=== PATIENT | female | born 1990 | race African-American/Black ===

== ENCOUNTER 2023-12-04 05:11 | Day surgery (SDC) | payer MEDICARE, OTHER ==
[2023-12-04 05:56] VITALS: BMI 39.6
[2023-12-04] MEDS: diphenhydrAMINE 25 MG CAP PO SCH (06:29)
[2023-12-04] MEDS: Hydrocortisone 1% Cream 30 GM TUBE TOP PRN (06:51)
[2023-12-04] MEDS: Ondansetron ORAL SOLN. 4 MG/5 ML UDCUP PO SCH (07:20)
== END 2023-12-04 11:28 | disposition home or self-care (01) ==
LOC: CSHLD/OP 05:11
PROVIDERS: ATTEND Obstetrics & Gynecology
DX: O23.593 Infection of other part of genital tract in pregnancy, third trimester (principal); N89.8 Other specified noninflammatory disorders of vagina; O99.891 Other specified diseases and conditions complicating pregnancy; R73.03 Prediabetes; O99.343 Other mental disorders complicating pregnancy, third trimester; F31.9 Bipolar disorder, unspecified; F25.9 Schizoaffective disorder, unspecified; O99.213 Obesity complicating pregnancy, third trimester; O35.2XX0 Maternal care for (suspected) hereditary disease in fetus, not applicable or unspecified; D56.0 Alpha thalassemia; B96.89 Other specified bacterial agents as the cause of diseases classified elsewhere; Z79.899 Other long term (current) drug therapy; Z79.82 Long term (current) use of aspirin; Z3A.39 39 weeks gestation of pregnancy
CPT/HCPCS: 87480; 87510; 87660; Q0162; 76815; 81001; 87491; 87591; 99285

== ENCOUNTER 2023-12-06 21:45 | Observation (INO) | payer MEDICARE, OTHER ==
[2023-12-06] MEDS ORDERED: Acetaminophen 500 MG TAB PO SCH (23:45)
== END 2023-12-07 11:03 | disposition home or self-care (01) ==
LOC: CSHLD/OP 21:45 → CSHLD 23:56
PROVIDERS: ADMIT Obstetrics & Gynecology; ATTEND Obstetrics & Gynecology
DX: O99.891 Other specified diseases and conditions complicating pregnancy (principal); R10.9 Unspecified abdominal pain; O99.343 Other mental disorders complicating pregnancy, third trimester; F25.0 Schizoaffective disorder, bipolar type; O24.113 Pre-existing type 2 diabetes mellitus, in pregnancy, third trimester; O99.213 Obesity complicating pregnancy, third trimester; O23.593 Infection of other part of genital tract in pregnancy, third trimester; B96.89 Other specified bacterial agents as the cause of diseases classified elsewhere; D56.0 Alpha thalassemia; Z79.899 Other long term (current) drug therapy; Z98.890 Other specified postprocedural states; Z3A.29 29 weeks gestation of pregnancy

== ENCOUNTER 2023-12-12 02:44 | Day surgery (SDC) | payer MEDICARE, OTHER ==
[2023-12-12 03:29] VITALS: BMI 42.8
[2023-12-12] MEDS: Lactated Ringer's 1,000 ML IV SCH (03:58)
[2023-12-12] MEDS: Acetaminophen 500 MG TAB PO SCH (04:10)
[2023-12-12 04:29] LABS: Bilirubin Neg (Negative); Blood, Urine 10 (Negative); Clarity Clear (Clear); Glucose, Urine (Dipstick) Normal (Negative); Ketone, Urine Negative (Negative); Leukocyte 25 (Negative); Nitrite Negative (Negative); Protein, Urine (Dipstick) 30 mg/dl (Neg-Trace)
[2023-12-12 06:55] LABS: CAUTI Indications for Culture Pregnancy
[2023-12-12 06:56] LABS: Bacteria/HPF Rare-Few HPF (None Seen); Yeast-Budding 1+ HPF (None Seen)
[2023-12-12 07:01] LABS: Urine Culture Reflex Yes Yes
[2023-12-12] MEDS: Fluconazole 100 MG TAB PO SCH (08:56)
[2023-12-12] MEDS: metroNIDAZOLE 500 MG TAB PO SCH (08:57)
== END 2023-12-12 09:26 | disposition home health service (06) ==
LOC: CSHLD/OP 02:44
PROVIDERS: ATTEND Family Medicine
DX: O9A.213 Injury, poisoning and certain other consequences of external causes complicating pregnancy, third trimester (principal); O99.891 Other specified diseases and conditions complicating pregnancy; R73.03 Prediabetes; O47.03 False labor before 37 completed weeks of gestation, third trimester; O00.01 Abdominal pregnancy with intrauterine pregnancy; O99.343 Other mental disorders complicating pregnancy, third trimester; F25.0 Schizoaffective disorder, bipolar type; O99.213 Obesity complicating pregnancy, third trimester; Z79.82 Long term (current) use of aspirin; Z88.8 Allergy status to other drugs, medicaments and biological substances; W18.30XA Fall on same level, unspecified, initial encounter; Z3A.30 30 weeks gestation of pregnancy
CPT/HCPCS: 51701; 81001; 87086; 87480; 87510; 87660; 96360; 99285

== ENCOUNTER 2023-12-15 01:09 | Day surgery (SDC) | payer MEDICARE, OTHER ==
[2023-12-15] MEDS ORDERED: hydrALAZINE 20 MG/ML VIAL SLOW IVP PRN (02:37)
[2023-12-15 03:27] VITALS: BMI 42.8
[2023-12-15 03:32] LABS: Bilirubin Neg (Negative); Blood, Urine Negative (Negative); Clarity Slightly Cloudy (Clear); Glucose, Urine (Dipstick) Normal (Negative); Ketone, Urine 15 mg/dL (Negative); Leukocyte Negative (Negative); Nitrite Negative (Negative); Protein, Urine (Dipstick) Negative (Neg-Trace); Specific Gravity, Urine 1.015 (1.005-1.030); Urobilinogen Normal mg/dL (Less than 2)
[2023-12-15 03:47] LABS: Bacteria/HPF 1+ HPF (None Seen); CAUTI Indications for Culture Dysuria,urgency,freq; Mucous/LPF 1+ LPF (<2+); RBC/HPF 0-3 HPF (0-3); WBC/HPF 0-3 HPF (0-3)
[2023-12-15 03:48] LABS: Urine Culture Reflex No No
[2023-12-15] MEDS: Ondansetron ODT 4 MG TAB SL PRN (03:58)
[2023-12-15] MEDS: Fluconazole 100 MG TAB PO SCH (05:30)
== END 2023-12-15 05:27 | disposition home or self-care (01) ==
LOC: CSHLD/OP 01:09
PROVIDERS: ATTEND Obstetrics & Gynecology
DX: O23.593 Infection of other part of genital tract in pregnancy, third trimester (principal); N89.8 Other specified noninflammatory disorders of vagina; O24.113 Pre-existing type 2 diabetes mellitus, in pregnancy, third trimester; O99.343 Other mental disorders complicating pregnancy, third trimester; F25.0 Schizoaffective disorder, bipolar type; O99.213 Obesity complicating pregnancy, third trimester; O98.813 Other maternal infectious and parasitic diseases complicating pregnancy, third trimester; B37.31 Acute candidiasis of vulva and vagina; Z14.8 Genetic carrier of other disease; O35.2XX0 Maternal care for (suspected) hereditary disease in fetus, not applicable or unspecified; Z79.82 Long term (current) use of aspirin; Z79.899 Other long term (current) drug therapy; Z3A.30 30 weeks gestation of pregnancy
CPT/HCPCS: 81001; Q0162; 99283

== ENCOUNTER 2024-01-11 16:57 | Day surgery (SDC) | payer MEDICARE, OTHER ==
[2024-01-11 17:21] LABS: #Basophils 0.02 10x3/uL (0.0-0.2); #Monocytes 0.82 10x3/uL (0.0-1.1); #Neutrophils 6.09 10x3/uL (1.5-8.4); %Basophils 0.2 % (0.0-2.0); %Lymphocytes 17.9 % (18.0-47.0); %Monocytes 9.7 % (0.0-10.0); %Neutrophils 71.7 % (40.0-75.0); Hematocrit 29.7 % (34.9-44.5); Mean Corpuscular HGB CONC 33.7 g/dL (32.0-36.0); Mean Corpuscular Hemoglobin 27.5 pg (27.0-33.0); Mean Corpuscular Volume 81.8 fL (81.6-98.3); Mean Platelet Volume 10.2 fL (7.4-10.4); Platelet Count 287 10x3/uL (150-450); RBC Distribution Width 14.2 % (11.5-14.5); Red Blood Cell (RBC) Count 3.63 10x6/uL (3.90-5.03); White Blood Cell (WBC) Count 8.5 10x3/uL (3.5-10.5)
[2024-01-11 17:46] LABS: INR-International Normal Ratio 0.9; PTT 25.4 sec (22.0-33.0); Prothrombin Time 10.1 sec (9.5-12.1)
[2024-01-11 18:58] LABS: ALT (SGPT) 37 U/L (8-55); AST (SGOT) 31 U/L (5-34); Albumin 2.9 g/dL (3.5-5.0); Alkaline Phosphatase 113 U/L (40-110); Anion Gap 14 mmol/L (10-20); BUN (Urea Nitrogen) 8 mg/dL (7.0-18.7); Bilirubin, Total 0.3 mg/dL (0.2-1.2); Calc. Creatinine Clearance 0 mL/min (70-130); Calcium 9.4 mg/dL (7.8-10.44); Carbon Dioxide 16 mmol/L (22-29); Chloride 107 mmol/L (98-107); Estimated GFR 122; Globulin 3.8 g/dL (2.4-3.5); Glucose 82 mg/dL (70-105); Potassium 4.2 mmol/L (3.5-5.1); Protein, Total 6.7 g/dL (6.0-8.3); Sodium 133 mmol/L (136-145)
[2024-01-11] MEDS ORDERED: hydrALAZINE 20 MG/ML VIAL SLOW IVP PRN (19:17)
[2024-01-11] MEDS: Acetaminophen 325 MG TAB PO PRN (19:50)
[2024-01-11 21:11] LABS: Bilirubin Neg (Negative); Blood, Urine Negative (Negative); Clarity Clear (Clear); Glucose, Urine (Dipstick) Normal (Negative); Ketone, Urine Negative (Negative); Leukocyte Negative (Negative); Nitrite Negative (Negative); Protein, Urine (Dipstick) Negative (Neg-Trace); Specific Gravity, Urine 1.005 (1.005-1.030); Urobilinogen Normal mg/dL (Less than 2)
[2024-01-11] MEDS ORDERED: diphenhydrAMINE 25 MG CAP PO PRN (21:22)
[2024-01-11 21:25] LABS: RBC/HPF None Seen HPF (0-3)
[2024-01-11 21:26] LABS: Bacteria/HPF 1+ HPF (None Seen); CAUTI Indications for Culture Pregnancy; Squamous Epithelial 0-3 HPF (0-3); Urine Culture Reflex No No; Urine Culture Reflex Yes Yes; WBC/HPF 0-3 HPF (0-3)
[2024-01-11 21:43] VITALS: BMI 44.8
[2024-01-11 22:49] LABS: Creatinine, Urine 31.41 mg/dL (47-110)
[2024-01-11 23:20] LABS: Protein, Urine Random Quant Less than 10 mg/dL (1-14)
[2024-01-11] MEDS: Magnesium Oxide 400 MG TAB PO SCH (23:45)
== END 2024-01-12 00:37 | disposition home or self-care (01) ==
LOC: CSHERS 16:57 → CSHLD/OP 18:49
PROVIDERS: ATTEND Student in an Organized Health Care Education/Training Program
DX: O9A.213 Injury, poisoning and certain other consequences of external causes complicating pregnancy, third trimester (principal); O99.891 Other specified diseases and conditions complicating pregnancy; R10.84 Generalized abdominal pain; R51.9 Headache, unspecified; R03.0 Elevated blood-pressure reading, without diagnosis of hypertension; R55 Syncope and collapse; O99.343 Other mental disorders complicating pregnancy, third trimester; F25.0 Schizoaffective disorder, bipolar type; F41.9 Anxiety disorder, unspecified; F32.A Depression, unspecified; O99.013 Anemia complicating pregnancy, third trimester; O99.283 Endocrine, nutritional and metabolic diseases complicating pregnancy, third trimester; E87.1 Hypo-osmolality and hyponatremia; Z79.899 Other long term (current) drug therapy; Z98.890 Other specified postprocedural states; W19.XXXA Unspecified fall, initial encounter
CPT/HCPCS: 36415; 70450; 72125; 76819; 80053; 81001; 82570; 84156; 85025; 85610; 85730; 87086; 93005; 93010; 99285

== ENCOUNTER 2024-01-23 01:14 | Emergency (ER) | payer MEDICARE, OTHER | END 2024-01-23 01:48 | disposition home or self-care (01) | LOC: CSHERS 01:14 → EEVIPCON 01:14 → CSHERS 01:48 | DX: O9A.213 Injury, poisoning and certain other consequences of external causes complicating pregnancy, third trimester (principal); S30.1XXA Contusion of abdominal wall, initial encounter; S00.33XA Contusion of nose, initial encounter; Z3A.37 37 weeks gestation of pregnancy; Y04.8XXA Assault by other bodily force, initial encounter | CPT/HCPCS: 99283 ==

== ENCOUNTER 2024-02-06 02:45 | Day surgery (SDC) | payer MEDICARE, MEDICAID ==
[2024-02-16 14:05] LABS: Bilirubin Negative (Negative); Blood, Urine Negative (Negative); CAUTI Indications for Culture Pregnancy; Clarity Hazy (Clear); Glucose, Urine (Dipstick) Negative (Negative); Ketone, Urine 50 mg/dL (Negative); Leukocyte Negative (Negative); Nitrite Negative (Negative); Protein, Urine (Dipstick) 30 mg/dl (Neg-Trace); Specific Gravity, Urine 1.025 (1.005-1.030); Urobilinogen Normal mg/dL (Less than 2)
[2024-02-16 14:06] LABS: Bacteria/HPF 1+ HPF (None Seen); Mucous/LPF 1+ LPF (<2+); RBC/HPF 0-3 HPF (0-3); WBC/HPF 0-3 HPF (0-3)
[2024-02-16 14:07] LABS: Urine Culture Reflex No No
[2024-02-16 14:09] LABS: Urine Culture Reflex Yes Yes
[2024-02-16 15:17] LABS: White Blood Cell (WBC) Count 8.6 10x3/uL (3.5-10.5)
[2024-02-16 15:18] LABS: %Lymphocytes 17.2 % (18.0-47.0); %Monocytes 8.3 % (0.0-10.0); Hemoglobin 9.8 g/dL (12.0-15.5); Mean Corpuscular HGB CONC 32.7 g/dL (32.0-36.0); Mean Corpuscular Hemoglobin 26.5 pg (27.0-33.0); Mean Corpuscular Volume 81.1 fL (81.6-98.3); Mean Platelet Volume 10.4 fL (7.4-10.4); Platelet Count 256 10x3/uL (130-400); RBC Distribution Width 15.5 % (11.5-14.5)
[2024-02-16 15:19] LABS: #Basophils 0.02 10x3/uL (0.0-0.2); #Monocytes 0.71 10x3/uL (0.0-1.1); #Neutrophils 6.35 10x3/uL (1.5-8.4); %Basophils 0.2 % (0.0-2.0)
[2024-02-16 15:21] LABS: Albumin 2.7 g/dL (3.5-5.0); Alkaline Phosphatase 132 U/L (40-110); Anion Gap 13 mmol/L (10-20); BUN (Urea Nitrogen) 10 mg/dL (7.0-18.7); Bilirubin, Total 0.5 mg/dL (0.2-1.2); Calc. Creatinine Clearance 0 mL/min (70-130); Calcium 9.1 mg/dL (7.6-10.4); Carbon Dioxide 20 mmol/L (22-29); Chloride 107 mmol/L (98-107); Estimated GFR 119; Globulin 3.6 g/dL (2.4-3.5); Glucose 89 mg/dL (70-105); Potassium 3.6 mmol/L (3.5-5.1); Protein, Total 6.3 g/dL (6.0-8.3); Sodium 136 mmol/L (136-145)
[2024-02-16 15:22] LABS: ALT (SGPT) 29 U/L (8-55); AST (SGOT) 26 U/L (5-34)
[2024-02-16 15:23] LABS: Phencyclidine (PCP) Not Detected (NotDetected); THC/Cannabinoid Screen Not Detected (NotDetected)
[2024-02-16 15:24] LABS: Amphetamine Not Detected (NotDetected); Barbiturates Screen Not Detected (NotDetected); Benzodiazepine Screen Not Detected (NotDetected); Cocaine Metabolite Screen Detected (NotDetected); Methadone Not Detected (NotDetected); Methamphetamine Not Detected (NotDetected); Opiate Screen Not Detected (NotDetected); Tricyclic Screen Not Detected (NotDetected)
[2024-02-16 15:25] LABS: Oxycodone Screen Not Detected (NotDetected)
== END 2024-02-06 10:30 | disposition home or self-care (01) ==
LOC: CSHLD/OP 02:45
PROVIDERS: ATTEND Advanced Practice Midwife
DX: Z36.89 Encounter for other specified antenatal screening (principal); O99.320 Drug use complicating pregnancy, unspecified trimester; F14.90 Cocaine use, unspecified, uncomplicated; Z3A.00 Weeks of gestation of pregnancy not specified
CPT/HCPCS: 76819; 80053; 80306; 81001; 82239; 87086; 87480; 87510; 87660; 99285

== ENCOUNTER 2024-02-08 20:22 | Inpatient (IN) | payer MEDICARE, OTHER ==
[2024-02-08] MEDS ORDERED: Promethazine HCl 25 MG/ML VIAL IM PRN (20:45)
[2024-02-08] MEDS ORDERED: Oxytocin 30 units/NS 500 ML 500 ML IV SCH ×2 (20:45)
[2024-02-08] MEDS ORDERED: Lactated Ringer's 1,000 ML IV SCH (20:45)
[2024-02-08] MEDS ORDERED: Diphenoxylate HCl/Atropine Tablet PO PRN ×2 (20:45)
[2024-02-08] MEDS ORDERED: hydrALAZINE 20 MG/ML VIAL SLOW IVP PRN (20:45)
[2024-02-08] MEDS ORDERED: Misoprostol 100 MCG TAB VAG SCH (20:45)
[2024-02-08] MEDS ORDERED: Lidocaine 1% (PF) 30 ML VIAL SC PRN (20:45)
[2024-02-08] MEDS ORDERED: Acetaminophen 500 MG TAB PO PRN (20:45)
[2024-02-08] MEDS ORDERED: Methylergonovine 0.2 MG/ML VIAL IM PRN (20:45)
[2024-02-08] MEDS ORDERED: Misoprostol 200 MCG TAB PR PRN (20:45)
[2024-02-08] MEDS ORDERED: Tranexamic Acid 1,000 MG/10 ML VIAL IVP PRN (20:45)
[2024-02-08] MEDS ORDERED: Ondansetron PF 4 MG/2 ML Vial IVP PRN (20:45)
[2024-02-08] MEDS ORDERED: Carboprost 250 MCG/ML AMP IM PRN (20:45)
[2024-02-08 21:00] VITALS: BMI 43.7
[2024-02-08 21:44] LABS: Bilirubin Neg (Negative); Blood, Urine Negative (Negative); Clarity Clear (Clear); Glucose, Urine (Dipstick) Normal (Negative); Ketone, Urine 15 mg/dL (Negative); Leukocyte Negative (Negative); Nitrite Negative (Negative); Protein, Urine (Dipstick) 15 mg/dl (Neg-Trace); Urobilinogen Normal mg/dL (Less than 2)
[2024-02-08 21:54] LABS: Amphetamine Not Detected (NotDetected); Barbiturates Screen Not Detected (NotDetected); Benzodiazepine Screen Not Detected (NotDetected); Cocaine Metabolite Screen Not Detected (NotDetected); Methadone Not Detected (NotDetected); Methamphetamine Not Detected (NotDetected); Opiate Screen Not Detected (NotDetected); Oxycodone Screen Not Detected (NotDetected); Phencyclidine (PCP) Not Detected (NotDetected); THC/Cannabinoid Screen Not Detected (NotDetected); Tricyclic Screen Not Detected (NotDetected)
[2024-02-08] MEDS: metroNIDAZOLE 500 MG TAB PO SCH (22:51)
[2024-02-08] MEDS: Acetaminophen 500 MG TAB PO SCH (22:51)
[2024-02-08 22:53] LABS: Bacteria/HPF 2+ HPF (None Seen); CAUTI Indications for Culture Dysuria,urgency,freq; RBC/HPF None Seen HPF (0-3); Squamous Epithelial 0-3 HPF (0-3); WBC/HPF 0-3 HPF (0-3)
[2024-02-08 22:55] LABS: Urine Culture Reflex No No
== END 2024-02-08 23:50 | disposition home or self-care (01) | DRG 832 ==
LOC: EEVIPCON 20:28 → CSHLD 20:28
PROVIDERS: ADMIT Family Medicine; ATTEND Family Medicine
DX: O99.891 Other specified diseases and conditions complicating pregnancy (principal); O23.593 Infection of other part of genital tract in pregnancy, third trimester; Z3A.38 38 weeks gestation of pregnancy; O99.343 Other mental disorders complicating pregnancy, third trimester; F25.0 Schizoaffective disorder, bipolar type; B96.89 Other specified bacterial agents as the cause of diseases classified elsewhere; O99.013 Anemia complicating pregnancy, third trimester; N64.4 Mastodynia
CPT/HCPCS: 80306; 81001; 82239; 87086; 93005; 93010; 99285

== ENCOUNTER 2024-02-13 01:20 | Inpatient (IN) | payer MEDICARE, MEDICAID ==
[2024-02-13 01:46] VITALS: BMI 43.7
[2024-02-13] MEDS ORDERED: Tranexamic Acid 1,000 MG/10 ML VIAL IVP PRN (02:24)
[2024-02-13] MEDS ORDERED: Carboprost 250 MCG/ML AMP IM PRN (02:24)
[2024-02-13] MEDS ORDERED: Acetaminophen 500 MG TAB PO PRN (02:24)
[2024-02-13] MEDS ORDERED: Methylergonovine 0.2 MG/ML VIAL IM PRN (02:24)
[2024-02-13] MEDS ORDERED: Ondansetron PF 4 MG/2 ML Vial IVP PRN ×3 (02:24→09:52)
[2024-02-13] MEDS ORDERED: hydrALAZINE 20 MG/ML VIAL SLOW IVP PRN ×2 (02:24→09:52)
[2024-02-13] MEDS ORDERED: Diphenoxylate HCl/Atropine Tablet PO PRN ×2 (02:24)
[2024-02-13] MEDS ORDERED: Promethazine HCl 25 MG/ML VIAL IM PRN ×2 (02:24→09:42)
[2024-02-13] MEDS ORDERED: Lidocaine 1% (PF) 30 ML VIAL SC PRN (02:24)
[2024-02-13] MEDS ORDERED: Misoprostol 200 MCG TAB PR PRN (02:24)
[2024-02-13] MEDS ORDERED: Oxytocin 30 units/NS 500 ML 500 ML IV SCH ×4 (02:30→16:00)
[2024-02-13 02:56] LABS: Amphetamine Not Detected (NotDetected); Barbiturates Screen Not Detected (NotDetected); Benzodiazepine Screen Not Detected (NotDetected); Cocaine Metabolite Screen Not Detected (NotDetected); Methadone Not Detected (NotDetected); Methamphetamine Not Detected (NotDetected); Opiate Screen Not Detected (NotDetected); Oxycodone Screen Not Detected (NotDetected); Phencyclidine (PCP) Not Detected (NotDetected); THC/Cannabinoid Screen Not Detected (NotDetected); Tricyclic Screen Not Detected (NotDetected)
[2024-02-13 03:21] LABS: Fetal Membranes Rupture No Membranes Rupture (No Rupture)
[2024-02-13 05:08] LABS: Hematocrit 31.8 % (34.9-44.5); Hemoglobin 10.5 g/dL (12.0-15.5); Mean Corpuscular Hemoglobin 26.4 pg (27.0-33.0); Mean Corpuscular Volume 79.9 fL (81.6-98.3); Platelet Count 269 10x3/uL (150-450); RBC Distribution Width 15.7 % (11.5-14.5); Red Blood Cell (RBC) Count 3.98 10x6/uL (3.90-5.03); White Blood Cell (WBC) Count 9.1 10x3/uL (3.5-10.5)
[2024-02-13] MEDS: Misoprostol 100 MCG TAB PO SCH ×2 (05:35→11:35)
[2024-02-13 05:41] LABS: Syphilis Antibody Nonreactive (Nonreactive); Syphilis Antibody Index 0.07 S/CO (<1.00 Non-Reactive)
[2024-02-13 05:44] LABS: HBsAg Index 0.17 S/CO (0-0.99); HIV (1/2) Antibody/Antigen Non-Reactive (NonReactive); HIV 1/2 INDEX 0.16 S/CO (<1.00); Hep B Surf Ag - L&D Non-Reactive S/CO (NonReactive)
[2024-02-13] MEDS: Misoprostol 100 MCG TAB VAG SCH (08:37)
[2024-02-13] MEDS: Lactated Ringer's 1,000 ML IV SCH (09:10)
[2024-02-13] MEDS: fentaNYL/Ropivacaine Epidural 100 ML ONE (09:32)
[2024-02-13] MEDS ORDERED: Naloxone HCl 0.4 mg/ml Vial IVP PRN (09:42)
[2024-02-13] MEDS ORDERED: Lactated Ringer's 500 ML IV PRN (09:42)
[2024-02-13] MEDS ORDERED: ePHEDrine Sulfate 50 MG/10 ML VIAL SLOW IVP PRN (09:42)
[2024-02-13] MEDS ORDERED: Communication Order-Pharmacy FS SCH (09:45)
[2024-02-13] MEDS: Sertraline 25 MG TAB PO SCH (09:57)
[2024-02-13] MEDS: Promethazine HCl 25 MG/ML VIAL IM PRN (10:15)
[2024-02-13] MEDS: Acetaminophen 325 MG TAB PO PRN (10:22)
[2024-02-13 12:17] LABS: Hematocrit 27.9 % (34.9-44.5); Hemoglobin 9.2 g/dL (12.0-15.5); Mean Corpuscular Hemoglobin 26.4 pg (27.0-33.0); Mean Corpuscular Volume 79.9 fL (81.6-98.3); Mean Platelet Volume 10.4 fL (7.4-10.4); Platelet Count 214 10x3/uL (150-450); RBC Distribution Width 15.9 % (11.5-14.5); Red Blood Cell (RBC) Count 3.49 10x6/uL (3.90-5.03); White Blood Cell (WBC) Count 7.1 10x3/uL (3.5-10.5)
[2024-02-13] MEDS: diphenhydrAMINE 50 MG/ML VIAL IVP PRN (12:21)
[2024-02-13 13:02] LABS: HBsAg Index 0.17 S/CO (0-0.99); Hep B Surf Ag - L&D Non-Reactive S/CO (NonReactive); Syphilis Antibody Nonreactive (Nonreactive); Syphilis Antibody Index 0.05 S/CO (<1.00 Non-Reactive)
[2024-02-13] MEDS: Moisturizing Cream (Eucerin) 113 GM JAR TOP PRN (13:10)
[2024-02-13] MEDS: Naloxone HCl 0.4 mg/ml Vial IVP PRN (15:25)
[2024-02-13] MEDS ORDERED: CLOZAPINE PO SCH (21:00)
[2024-02-13] MEDS: fentaNYL 2 mcg/Ropivacaine 0.2% Epidural 100 ML CADD EPIDURAL SCH (21:25)
[2024-02-14] MEDS ORDERED: Naloxone HCl 0.4 mg/ml Vial IV PRN ×2 (03:47→11:03)
[2024-02-14] MEDS ORDERED: diphenhydrAMINE 50 MG/ML VIAL IM PRN (03:47)
[2024-02-14] MEDS ORDERED: Ondansetron PF 4 MG/2 ML Vial IVP PRN ×3 (03:47→11:03)
[2024-02-14] MEDS ORDERED: diphenhydrAMINE 25 MG CAP PO PRN (03:47)
[2024-02-14] MEDS ORDERED: Promethazine HCl 25 MG/ML VIAL IM PRN (03:47)
[2024-02-14] MEDS ORDERED: diphenhydrAMINE 50 MG/ML VIAL IVP PRN ×2 (03:47→11:03)
[2024-02-14] MEDS ORDERED: FENTANYL 500 MCG/10 ML VIAL 2,000 MCG in Sodium Chloride 0.9% 60 ML IV PRN (03:47)
[2024-02-14] MEDS ORDERED: Ketorolac Tromethamine 30 MG (1 mL) VIAL IVP PRN (03:48)
[2024-02-14] MEDS ORDERED: Communication Order-Pharmacy FS SCH ×2 (04:00→11:15)
[2024-02-14] MEDS: FENTANYL 1,000 MCG/20 ML VIAL 1,000 MCG in Sodium Chloride 0.9% 30 ML IV PRN (04:54)
[2024-02-14] MEDS ORDERED: Methylergonovine 0.2 MG/ML VIAL IM PRN (10:34)
[2024-02-14] MEDS ORDERED: Misoprostol 200 MCG TAB PR PRN (10:34)
[2024-02-14] MEDS ORDERED: hydrALAZINE 20 MG/ML VIAL SLOW IVP PRN (10:34)
[2024-02-14] MEDS ORDERED: Oxytocin 30 units/NS 500 ML 500 ML IV SCH (10:45)
[2024-02-14] MEDS ORDERED: Moisturizing Cream (Eucerin) 113 GM JAR TOP PRN (11:03)
[2024-02-14] MEDS ORDERED: fentaNYL 50 mcg/mL 1 mL Vial SLOW IVP PRN (11:03)
[2024-02-14] MEDS ORDERED: Naloxone HCl 0.4 mg/ml Vial IVP PRN ×2 (11:03)
[2024-02-14] MEDS ORDERED: Ibuprofen 800 MG TAB PO SCH (14:00)
[2024-02-14] MEDS ORDERED: Ketorolac Tromethamine 30 MG (1 mL) VIAL IVP SCH (16:30)
[2024-02-14] MEDS: Midazolam HCl 2 mg/2 ml Vial ONE (17:00)
[2024-02-14] MEDS: fentaNYL 50 mcg/mL 1 mL Vial ONE ×2 (17:00→17:01)
[2024-02-14] MEDS: CEFAZOLIN 2 GM VIAL ONE (17:01)
[2024-02-14] MEDS: Azithromycin 500 MG VIAL ONE (17:01)
[2024-02-14] MEDS: Dexmedetomidine 200 MCG/2 ML VIAL ONE (17:01)
[2024-02-14] MEDS: SUCCINYLCHOLINE/SOD CL,ISO/PF 200 MG/10 ML SYRINGE FS ONE (17:02)
[2024-02-14] MEDS: Rocuronium Bromide 10 MG/ML (10ML VIAL) ONE (17:02)
[2024-02-14] MEDS: PROPOFOL 20 ML ONE ×2 (17:02→17:03)
[2024-02-14] MEDS: Tranexamic Acid 1,000 MG/10 ML VIAL ONE (17:03)
[2024-02-14] MEDS: Oxytocin 10 UNITS/ML VIAL ONE ×2 (17:03→17:10)
[2024-02-14] MEDS: PHENYLEPHRINE-NS 100 MCG/ML 10 ML SYRINGE ONE (17:09)
[2024-02-14] MEDS: Bupivacaine 0.25% HCL 30 ML VIAL ONE (17:09)
[2024-02-14] MEDS: Methylergonovine 0.2 MG/ML VIAL ONE (17:09)
[2024-02-14] MEDS: SUGAMMADEX SODIUM 200 MG/2 ML VIAL ONE ×2 (17:10)
[2024-02-14] MEDS: Boostrix 0.5 ML (Tdap) VIAL (>/=7 yrs of age) IM ONE (17:10)
[2024-02-14] MEDS: Ketorolac Tromethamine 30 MG (1 mL) VIAL ONE (17:10)
[2024-02-14] MEDS: Ketorolac Tromethamine 30 MG (1 mL) VIAL IVP PRN (17:48)
[2024-02-14] MEDS: Docusate 100 MG CAP PO SCH (21:22)
[2024-02-14] MEDS: CLOZAPINE PO SCH (21:36)
[2024-02-14] MEDS: HYDROcodone/Acetaminophen 5/325 mg Tablet PO PRN (23:26)
[2024-02-15 04:05] LABS: Hematocrit 25.5 % (34.9-44.5); Hemoglobin 8.4 g/dL (12.0-15.5); Mean Corpuscular HGB CONC 32.9 g/dL (32.0-36.0); Mean Corpuscular Hemoglobin 26.5 pg (27.0-33.0); Mean Corpuscular Volume 80.4 fL (81.6-98.3); Mean Platelet Volume 11.1 fL (7.4-10.4); Platelet Count 207 10x3/uL (150-450); Red Blood Cell (RBC) Count 3.17 10x6/uL (3.90-5.03); White Blood Cell (WBC) Count 10.5 10x3/uL (3.5-10.5)
[2024-02-15] MEDS: Prenatal Vitamin 1 TAB PO SCH (08:58)
[2024-02-15] MEDS: Cyclobenzaprine 10 MG TAB PO PRN (15:51)
[2024-02-15] MEDS ORDERED: Lorazepam 2 MG/ML VIAL SLOW IVP PRN (17:13)
[2024-02-15] MEDS ORDERED: Diazepam 5 MG TAB PO PRN (17:16)
[2024-02-15] MEDS: Acetaminophen 325 MG TAB PO PRN (17:48)
[2024-02-15] MEDS: Diazepam 5 MG TAB PO SCH (18:04)
[2024-02-15] MEDS: Lorazepam 2 MG/ML VIAL IM PRN (21:30)
[2024-02-15] MEDS: Ziprasidone 20 MG VIAL IM SCH (21:30)
[2024-02-15] MEDS: Enoxaparin 40 MG (0.4 mL) SYRINGE SC SCH (21:40)
[2024-02-16] MEDS: Simethicone Chewable 80 MG TAB PO PRN (08:05)
[2024-02-16] MEDS: Ibuprofen 600 MG TAB PO PRN (08:05)
[2024-02-16 11:40] LABS: Hemoglobin 8.7 g/dL (12.0-15.5); MDiff Complete? YES; Mean Corpuscular HGB CONC 33.5 g/dL (32.0-36.0); Mean Corpuscular Hemoglobin 26.5 pg (27.0-33.0); Mean Corpuscular Volume 79.3 fL (81.6-98.3); Mean Platelet Volume 10.7 fL (7.4-10.4); Platelet Count 241 10x3/uL (150-450); RBC Distribution Width 16.1 % (11.5-14.5); Red Blood Cell (RBC) Count 3.28 10x6/uL (3.90-5.03); White Blood Cell (WBC) Count 13.1 10x3/uL (3.5-10.5)
[2024-02-16 11:59] LABS: Band 1 % (5-11); Lymphocytes 9 % (21-51); Monocytes 4 % (0-10); Neutrophil 86 % (42-75)
[2024-02-16] MEDS ORDERED: Benzonatate 100 MG CAP PO PRN (19:03)
[2024-02-17] MEDS ORDERED: Sertraline 100 MG TAB PO SCH (09:00)
[2024-02-17] MEDS: Citalopram 20 MG TAB PO SCH (09:28)
[2024-02-17] MEDS: CLOZAPINE PO SCH (21:16)
[2024-02-19 07:49] VITALS: BP 118/80; TEMP 97.7
== END 2024-02-19 17:15 | disposition home or self-care (01) | DRG 786 ==
LOC: CSHLD/OP 01:20 → EEVIPCON 05:00 → CSHLD 05:00 → CSHPP 02-14 15:41
PROVIDERS: ADMIT Family Medicine; ATTEND Family Medicine
PROC: 10D00Z1 Extraction of Products of Conception, Low, Open Approach (ICD-10-PCS; principal; 2024-02-13)
PROC: 10907ZC Drainage of Amniotic Fluid, Therapeutic from Products of Conception, Via Natural or Artificial Opening (ICD-10-PCS; 2024-02-13)
PROC: 10H07YZ Insertion of Other Device into Products of Conception, Via Natural or Artificial Opening (ICD-10-PCS; 2024-02-13)
DX: O42.02 Full-term premature rupture of membranes, onset of labor within 24 hours of rupture (principal); O24.32 Unspecified pre-existing diabetes mellitus in childbirth; O99.324 Drug use complicating childbirth; Z3A.39 39 weeks gestation of pregnancy; Z37.0 Single live birth; O99.344 Other mental disorders complicating childbirth; F31.9 Bipolar disorder, unspecified; O34.13 Maternal care for benign tumor of corpus uteri, third trimester; O62.1 Secondary uterine inertia; Z79.899 Other long term (current) drug therapy; F25.9 Schizoaffective disorder, unspecified; F14.90 Cocaine use, unspecified, uncomplicated; O99.214 Obesity complicating childbirth; D56.0 Alpha thalassemia; F41.9 Anxiety disorder, unspecified; F43.10 Post-traumatic stress disorder, unspecified
CPT/HCPCS: 36415; 36416; 51702; 80306; 84112; 85025; 85027; 86780; 86850; 86900; 86901; 87340; 87389; 99285; J0665; J1200; J1650; J1885; J2060; J2210; J2250; J2310; J2550; J2590; J2704; J3010; J3486; J7120